=== PATIENT | female | born 1960 | race African-American/Black ===

== ENCOUNTER 2018-12-21 13:58 | Emergency (ER) | payer MEDICAID ==
[~2018-12-21] VITALS: Ht 170.2 cm; Wt 84.0 kg
[2018-12-21] MEDS ORDERED: KETOROLAC 60MG/2ML VIAL IM ONE (19:00)
[2018-12-21 20:10] VITALS: BP 113/60
== END 2018-12-21 20:11 | disposition home or self-care (01) ==
LOC: ER 13:58
DX: S70.01XA Contusion of right hip, initial encounter (principal); S39.82XA Other specified injuries of lower back, initial encounter; Z98.1 Arthrodesis status; Z88.0 Allergy status to penicillin; W10.8XXA Fall (on) (from) other stairs and steps, initial encounter; Y93.89 Activity, other specified; Y92.018 Other place in single-family (private) house as the place of occurrence of the external cause
CPT/HCPCS: 72100; 73502; 96372; 99283; J1885